=== PATIENT | female | born 1965 | race Caucasian/White ===

== ENCOUNTER 2020-04-18 23:34 | Emergency (ER) | payer SELFPAY ==
[2020-04-18] MEDS ORDERED: MORPHINE SULFATE INJ 10 MG/ML VIAL IM ONE (23:55)
[2020-04-18] MEDS ORDERED: ONDANSETRON ODT 8 MG TAB SL ONE (23:55)
--- NOTE | 2020-04-19 00:38 | RAD ---
EXAM DESCRIPTION: X-ray left knee, 3 views CLINICAL HISTORY: fall, pain COMPARISON: None FINDINGS: AP, lateral and sunrise views of the left knee were submitted. There is no acute fracture or dislocation. Bone mineralization is within normal limits. 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 Patellar spurring. There is no suprapatellar joint fluid collection IMPRESSION: No acute fracture or traumatic malalignment. Electronically signed by: Pio Solis MD 04/19/2020 12:36 AM CDT
--- NOTE | 2020-04-19 00:41 | ED.PDOC ---
History of Present Illness - General Chief Complaint: Trauma Stated Complaint: left knee pain Time Seen by Provider: 04/18/20 23:37 Source: patient, RN notes reviewed, Vital Signs reviewed, family Exam Limitations: no limitations - History of Present Illness Initial Comments: This is a 54-year-old female with no significant past medical history presenting to the emergency department for left knee and left hip pain after she fell while walking in the dark at her cabin at [facility]. She states she hit her knee on a raised concrete porch, Injury occurred just prior to arrival. She denies any head trauma. No LOC. No back pain no neck pain. Patient states she is unable to bear weight on the knee or the hip due to pain. Allergies/Adverse Reactions: Allergies NO KNOWN ALLERGY Allergy (Verified 04/18/20 23:50) Home Medications: Ambulatory Orders Acetamin W/Cod #3 Tab [Tylenol w/CODEINE #3] 1 - 2 tablet PO Q6H PRN #20 tab 04/19/20 Cyclobenzaprine HCl [Flexeril] 10 mg PO Q6H PRN #20 tab 04/19/20 Ibuprofen [Motrin] 600 mg PO Q6H PRN #30 tab 04/19/20 Review of Systems - Review of Systems Musculoskeletal: States: joint pain, muscle pain. Denies: back pain, neck pain Neurological: Denies: headache, numbness, paresthesia, tingling Past Medical History (General) - Patient Medical History Hx Seizures: No Hx Stroke: No Hx of COPD: Yes Hx Hypertension: No Hx Diabetes: No Surgical History: appendectomy, cholecystectomy, Hysterectomy - Vaccination History Hx Tetanus, Diphtheria Vaccination: No Hx Influenza Vaccination: No Hx Pneumococcal Vaccination: No - Social History Hx Alcohol Use: No Family Medical History - Family History Mother Family History: Unknown Physical Exam - Physical Exam General Appearance: Alert, Comfortable Neck: non-tender, full range of motion, supple Respiratory: lungs clear, normal breath sounds, no respiratory distress Cardiovascular/Chest: regular rate, rhythm, no edema, no gallop Peripheral Pulses: dorsalis pedis,right: 2+, dorsalis pedis,left: 2+ Gastrointestinal/Abdominal: non tender, soft Back Exam: normal inspection, no CVA tenderness, no vertebral tenderness Extremity: no pedal edema, other - Abrasions over the left patella, tenderness over the left patella, no crepitus or deformities. There is also tenderness over the left greater trochanter. Neurologic: alert, normal mood/affect, oriented x 3 Skin Exam: normal color, warm/dry Progress - Progress Progress: 04/19/20 00:43 Rechecked. Discussed x-ray findings and plan for discharge home. Discussed plan for knee immobilizer/crutches as needed for comfort. Strict warnings given to return the emergency room for worsening pain, headache, back pain, neck pain, any other injuries and need to be evaluated, or any other concerns DDX: Fracture, dislocation, sprain/strain MDM:, Ground-level fall with pain to the left knee and left hip. No fractures on x- ray, DJD of the left hip and the left knee noted on x-ray. Will place a knee immobilizer and crutches and sent home with analgesics, NSAIDs, muscle relaxants. Recommend follow-up PCP in 3 to 5 days. Strict return warnings given for new injuries, worsening pain or any other concern Judd Case DO [facility] #[id number] - Results/Orders Results/Orders: EXAM DESCRIPTION: X-ray left knee, 3 views CLINICAL HISTORY: fall, pain COMPARISON: None FINDINGS: AP, lateral and sunrise views of the left knee were submitted. There is no acute fracture or dislocation. Bone mineralization is within normal limits. 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 Patellar spurring. There is no suprapatellar joint fluid collection IMPRESSION: No acute fracture or traumatic malalignment. Electronically signed by: Pio Solis MD 04/19/2020 12:36 AM CDT EXAM: X-ray Hip, left 2 Views HISTORY: fall, pain COMPARISON: None TECHNIQUE: Two views of the left hip were obtained, AP and frog-leg lateral. FINDINGS: Anatomic alignment. No acute fracture or dislocation. Normal bony demineralization. Left hip osteoarthrosis. No subcutaneous emphysema or radiopaque foreign body. IMPRESSION: No acute fracture or traumatic malalignment. Electronically signed by: Pio Solis MD 04/19/2020 12:38 AM Departure - Departure Clinical Impression: Fall from slip, trip, or stumble Qualifiers: Encounter type: initial encounter Qualified Code(s): W01.0XXA - Fall on same level from slipping, tripping and stumbling without subsequent striking against object, initial encounter Contusion of left knee Qualifiers: Encounter type: initial encounter Qualified Code(s): S80.02XA - Contusion of left knee, initial encounter Sprain of left knee Qualifiers: Encounter type: initial encounter Involved ligament of knee: unspecified cruciate ligament Qualified Code(s): S83.502A - Sprain of unspecified cruciate ligament of left knee, initial encounter Contusion, hip Qualifiers: Encounter type: initial encounter Laterality: left Qualified Code(s): S70.02XA - Contusion of left hip, initial encounter Disposition: Discharge to Home or Self Care Condition: Fair Departure Forms: ED Discharge - Pt. Copy, Patient Portal Self Enrollment Diet: resume usual diet Activity: increase activity as tolerated Prescriptions: Cyclobenzaprine HCl [Flexeril] 10 mg PO Q6H PRN #20 tab PRN Reason: Muscle Spasms Ibuprofen [Motrin] 600 mg PO Q6H PRN #30 tab PRN Reason: Mild To Moderate Pain Acetamin W/Cod #3 Tab [Tylenol w/CODEINE #3] 1 - 2 tablet PO Q6H PRN #20 tab PRN Reason: Moderate To Severe Pain Home Medications: Ambulatory Orders Acetamin W/Cod #3 Tab [Tylenol w/CODEINE #3] 1 - 2 tablet PO Q6H PRN #20 tab 04/19/20 Cyclobenzaprine HCl [Flexeril] 10 mg PO Q6H PRN #20 tab 04/19/20 Ibuprofen [Motrin] 600 mg PO Q6H PRN #30 tab 04/19/20
[2020-04-19] MEDS ORDERED: HYDROcodone 5MG/APAP 325MG 1 EA TAB PO ONE (00:58)
[2020-04-19] MEDS ORDERED: IBUPROFEN 200 MG TAB PO ONE (00:58)
[2020-04-19] MEDS ORDERED: CYCLOBENZAPRINE HCL 10 MG TAB PO ONE (00:58)
[2020-04-19 01:31] VITALS: BP 124/90; TEMP 98.2; O2SAT 97
== END 2020-04-19 01:25 | disposition home or self-care (01) ==
LOC: ER 23:34
DX: S83.502A Sprain of unspecified cruciate ligament of left knee, initial encounter (principal); S70.02XA Contusion of left hip, initial encounter; J44.9 Chronic obstructive pulmonary disease, unspecified; W01.0XXA Fall on same level from slipping, tripping and stumbling without subsequent striking against object, initial encounter; Y93.01 Activity, walking, marching and hiking; Y92.009 Unspecified place in unspecified non-institutional (private) residence as the place of occurrence of the external cause
CPT/HCPCS: 73502; 73562; J2270